=== PATIENT | female | born 1970 | race Caucasian/White ===

== ENCOUNTER → 2017-10-23 | Outpatient (CLI) | payer BC ==
--- NOTE | 2017-10-23 10:00 | MR ---
EXAMINATION TYPE: MR angio head wo con DATE OF EXAM: 10/23/2017 COMPARISON: NONE HISTORY: Chronic tension-type headache TECHNIQUE: Time of flight images focusing on the [place] were performed without contrast.. 2-D and 3-D postprocessing imaging is performed. FINDINGS: There is codominant vertebral basilar system. There is no significant focal stenosis or ane urysmal change in the posterior circulation. There are hypoplastic posterior communicating arteries n oted bilaterally. Images of the anterior circulation show no significant focal stenosis or aneurysmal change. There is patent anterior communicating artery identified. IMPRESSION: No aneurysmal change at the level of the [place] of [place].
--- NOTE | 2017-10-23 10:03 | MR ---
EXAMINATION TYPE: MR brain wo/w con DATE OF EXAM: 10/23/2017 COMPARISON: NONE HISTORY: Headaches with sweating and family history of cerebral aneurysm per order. Headache and head pressure per patient. TECHNIQUE: Multiplanar, multisequence images of the brain and brainstem is performed without and with IV contras t, utilizing 7.5 mL intravenous Gadavist . FINDINGS: Diffusion weighted images demonstrate no evidence of a recent infarct or other diffusion ab normality. There is no extra-axial fluid collection or significant white matter signal abnormality. The ventricular system and cisternal spaces are normal in size and appearance. The brain volume is age appropriate. Midline structures demonstrate normal morphology. The craniocervical junction appears within normal limits. Post contrast images demonstrate no abnormal enhancement. The dural venous sinuses appear pa tent. The visualized sinuses are clear and the globes are intact. IMPRESSION: No significant finding is seen to account for patient's symptoms.
== END | disposition home or self-care (01) ==
LOC: RADMRIMAIN 08:48
PROVIDERS: ATTEND Physician Assistant
DX: G44.221 Chronic tension-type headache, intractable (principal); R61 Generalized hyperhidrosis; Z82.49 Family history of ischemic heart disease and other diseases of the circulatory system
CPT/HCPCS: 70544; 70553; A9581

== ENCOUNTER → 2021-09-13 | Outpatient (CLI) | payer BC ==
--- NOTE | 2021-09-14 07:19 | CT ---
EXAMINATION TYPE: CT abdomen pelvis wo con DATE OF EXAM: 09/13/2021 HISTORY: left flank pain, calculus of kidney CT DLP: 468.5 mGycm. Automated Exposure Control for Dose Reduction was Utilized. TECHNIQUE: CT scan of the abdomen and pelvis is performed without oral or IV contrast. COMPARISON: NONE FINDINGS: Within the limitations of a non-contrast study, the following observations are made. LUNG BASES: No significant abnormality is appreciated. LIVER/GB: Somewhat contracted gallbladder. There is no biliary dilatation. PANCREAS: No significant abnormality is seen. SPLEEN: No significant abnormality is seen. ADRENALS: No significant abnormality is seen. KIDNEYS: Large calculus midpole level right kidney confirmed axial image 51 measuring 1.4 cm long axi s. No left-sided nephrolithiasis. No hydronephrosis or obstructing ureteral calculi. BOWEL: Small hiatal hernia with moderate concentric wall thickening distal esophagus. Correlate clini tonya for reflux esophagitis. Normal-appearing appendix. No suspicious bowel dilatation. A few scatte red colonic diverticula. GENITAL ORGANS: Anteverted uterus with central metallic IUD. There is 1.9 cm low dense lesion left pe lvis with surrounding uterine tissue, possible thin-walled ovarian cyst or low dense subserosal fibro id. Few scattered right-sided pelvic phleboliths. LYMPH NODES: No greater than 1cm abdominal or pelvic lymph nodes are appreciated. OSSEOUS STRUCTURES: No significant abnormality is seen. OTHER: Small fat-containing umbilical hernia. IMPRESSION: Confirmation of 1.4 cm nonobstructing right renal calculus. No hydronephrosis or obstruct ing ureteral calculi identified.
== END | disposition home or self-care (01) ==
LOC: RADCTMAIN 18:21
PROVIDERS: ATTEND Urology
DX: N20.0 Calculus of kidney (principal)
CPT/HCPCS: 74176